=== PATIENT | male | born 1975 | race Hispanic/Latino ===

== ENCOUNTER → 2025-08-14 | Outpatient (CLI) | payer OTHER ==
--- NOTE | 2025-08-14 22:33 | HMCIMG ---
STUDY MR Right Foot without Intravenous Contrast CLINICAL HISTORY Right foot pain. ICD-10: S92.501A Displaced unspecified fracture of right lesser toe(s), initial encounter. TECHNIQUE Multiplanar, multisequence MRI of the right foot performed without intravenous contrast. Sequences include sagittal T1, T2 fat-suppressed, STIR; coronal PD fat-suppressed, T1, STIR; and axial T2 fat-suppressed and STIR images. COMPARISON None provided. FINDINGS Fifth Metatarsophalangeal Joint / Lateral Forefoot : There is a varus deformity at the fifth metatarsophalangeal (MTP) joint, consistent with a bunionette-type configuration. Overlying the lateral aspect of the fifth MTP joint, there is skin and subcutaneous soft tissue thickening with associated edema, in keeping with pressure-related or inflammatory soft tissue change. Within the head of the fifth metatarsal, subtle bone marrow edema is present along the lateral plantar aspect, without a discrete fracture line, cortical break, or displaced fragment. These findings are most compatible with stress-related/reactive marrow edema or early stress injury rather than an acute displaced fracture. The articular cartilage of the fifth MTP joint appears preserved. No joint effusion is identified. Bones (Remaining Foot) No acute fracture, stress fracture, or aggressive osseous lesion is identified elsewhere in the visualized bones of the foot. Overall alignment, apart from the fifth MTP varus deformity, is maintained. Ligaments The medial and lateral collateral ligaments, including the Lisfranc ligament complex, are intact. Tendons The Achilles, flexor, extensor, and peroneal tendons demonstrate normal signal and morphology, without tendinosis or tear. Plantar Fascia / Sinus Tarsi / Tarsal Tunnel Unremarkable. Muscles and Soft Tissues No intramuscular edema or focal soft tissue mass. Soft tissue changes are confined to the lateral aspect of the fifth MTP joint as described above. IMPRESSION * Varus deformity of the fifth metatarsophalangeal joint (bunionette-type morphology) with overlying lateral soft tissue thickening and edema. * Subtle marrow edema in the head of the fifth metatarsal along the lateral plantar aspect, without a definite fracture line, most consistent with stress-related/reactive bone marrow change or early stress injury, rather than an acute displaced fracture. * No MRI evidence of an additional acute fracture, ligamentous injury, or tendon abnormality in the right foot. /[place]
== END ==
LOC: RAH 08:49
PROVIDERS: ATTEND Student in an Organized Health Care Education/Training Program
DX: S92.501A Displaced unspecified fracture of right lesser toe(s), initial encounter for closed fracture (principal); M21.171 Varus deformity, not elsewhere classified, right ankle; R60.0 Localized edema; M21.621 Bunionette of right foot; X58.XXXA Exposure to other specified factors, initial encounter; Y93.89 Activity, other specified; Y92.89 Other specified places as the place of occurrence of the external cause; Y99.8 Other external cause status
CPT/HCPCS: 73718